=== PATIENT | female | born 2000 | race Caucasian/White ===

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

== ENCOUNTER 2024-09-28 11:40 | Inpatient (IN) | payer BC ==
[2024-09-28] MEDS ORDERED: Lidocaine 1% 50 ML MDV INJECT PRN (12:34)
[2024-09-28] MEDS ORDERED: Calcium Carbonate 500 MG Tab.Chew PO PRN (12:34)
[2024-09-28] MEDS ORDERED: Acetaminophen 325 MG Tab PO PRN (12:34)
[2024-09-28] MEDS ORDERED: Nalbuphine 10 MG/1 ML Vial IVPUSH PRN (12:34)
[2024-09-28] MEDS ORDERED: Ondansetron 4 MG/2 ML SDV IVPUSH PRN (12:34)
[2024-09-28 12:36] LABS: BASOPHILS PERCENT AUTO 0.3 % (0.0-1.0); EOSINOPHILS ABSOLUTE AUTO 0.1 K/mm3 (0.0-0.4); EOSINOPHILS PERCENT AUTO 0.7 % (0.0-6.0); HEMATOCRIT 37.1 % (37.0-47.0); IMMATURE GRAN ABSOLUTE AUTO 0.08 K/mm3 (0.00-0.05); IMMATURE GRAN PERCENT AUTO 0.6 % (0.0-0.4); LYMPHOCYTES ABSOLUTE AUTO 1.6 K/mm3 (1.0-4.8); LYMPHOCYTES PERCENT AUTO 12.6 % (24.0-44.0); MEAN CORPUSCULAR HEMOGLOBIN 23.5 pg (28.0-32.0); MEAN CORPUSCULAR HGB CONC 32.1 g/dl (32.0-36.0); MEAN PLATELET VOLUME 10.2 fl (9.4-12.3); MONOCYTES ABSOLUTE AUTO 0.9 K/mm3 (0.0-0.8); MONOCYTES PERCENT AUTO 7.2 % (0.0-8.0); NEUTROPHILS ABSOLUTE AUTO 10.1 K/mm3 (1.8-7.7); NEUTROPHILS PERCENT AUTO 78.6 % (41.0-71.0); RED BLOOD CELL COUNT 5.06 M/mm3 (4.10-5.30)
[2024-09-28 12:38] LABS: CREATININE,URINE RAND 54.1 mg/dL (30.0-125.0); PROTEIN CREATININE RATIO,URINE 166.4 mg/g (0-149)
[2024-09-28 12:51] LABS: HEMOGLOBIN 11.9 gm/dl (12.0-16.0); MEAN CORPUSCULAR VOLUME 73.3 fl (83.0-99.0); PLATELET COUNT,PLT 288 K/mm3 (150-400)
[2024-09-28 12:55] LABS: CREATININE 0.7 mg/dL (0.55-1.02); EST CRCL DRUG DOSING (CG) 107.01 mL/min; URIC ACID 4.2 mg/dL (2.6-6.0)
[2024-09-28] MEDS: Lactated Ringers 1,000 ML IV SCH (13:49)
[2024-09-28] MEDS: Ampicillin 2 GM in Sodium Chloride 0.9% 100 ML IV ONE (13:50)
[2024-09-28] MEDS: Oxytocin/0.9 % Sodium Chloride 30 UNIT/500 ML BAG IV SCH (13:50)
[2024-09-28] MEDS ORDERED: ePHEDrine 50 MG/ML SDV IVPUSH PRN (16:08)
[2024-09-28] MEDS ORDERED: diphenhydrAMINE 50 MG/ML SDV IVPUSH PRN (16:08)
[2024-09-28] MEDS: Misoprostol 25 MCG (1/4 of 100 MCG) Tab VAG ONE (17:48)
[2024-09-28] MEDS: Ampicillin 1 GM in Sodium Chloride 0.9% 100 ML IV SCH (17:57)
[2024-09-28] MEDS: fentaNYL 100 MCG/2 ML SDV EPIDUR PRN (19:45)
[2024-09-28] MEDS: Bupivacaine/fentaNYL/NS 100 ML Bag EPIDUR PRN (19:45)
[2024-09-29] MEDS: Oxytocin/0.9 % Sodium Chloride 30 UNIT/500 ML BAG IV SCH (04:23)
[2024-09-29] MEDS ORDERED: Docusate Sodium 100 MG Cap PO PRN (04:24)
[2024-09-29] MEDS ORDERED: Benzocaine/Menthol 20%-0.5% Spray 78 GM Cannister TOP PRN (04:24)
[2024-09-29] MEDS ORDERED: Witch Hazel Medicated Pads 40/Jar TOP PRN (04:24)
[2024-09-29] MEDS: Ibuprofen 600 MG Tab PO SCH (04:35)
[2024-09-29] MEDS: Sertraline 50 MG Tab PO SCH (22:37)
[2024-09-30] MEDS: Simethicone 80 MG Tab.Chew PO PRN (04:09)
[2024-09-30] MEDS: Acetaminophen 325 MG Tab PO PRN (04:10)
[2024-09-30] MEDS: Ibuprofen 600 MG Tab PO SCH (05:49)
[2024-10-02 13:47] LABS: TP-PA Non Reactive (Non Reactive)
[2024-10-03 04:46] LABS: FTA-ABS, IGG, SERUM Non Reactive (Non Reactive)
== END 2024-09-30 20:35 | disposition home or self-care (01) | DRG 560 ==
LOC: JD.OBCHECK 11:40 → JD.OB 11:40 → JD.OBCHECK 12:58 → OBSVTOIN 09-29 03:41 → JD.OB 09-29 03:42
PROVIDERS: ADMIT Obstetrics & Gynecology; ATTEND Obstetrics & Gynecology
PROC: 10E0XZZ Delivery of Products of Conception, External Approach (ICD-10-PCS; principal; 2024-09-29)
PROC: 10907ZC Drainage of Amniotic Fluid, Therapeutic from Products of Conception, Via Natural or Artificial Opening (ICD-10-PCS; 2024-09-29)
PROC: 0U7C7DJ Dilation of Cervix with Intraluminal Device, Temporary, Via Natural or Artificial Opening (ICD-10-PCS; 2024-09-29)
PROC: 3E033VJ Introduction of Other Hormone into Peripheral Vein, Percutaneous Approach (ICD-10-PCS; 2024-09-29)
PROC: 3E0R3BZ Introduction of Anesthetic Agent into Spinal Canal, Percutaneous Approach (ICD-10-PCS; 2024-09-29)
PROC: 00HU33Z Insertion of Infusion Device into Spinal Canal, Percutaneous Approach (ICD-10-PCS; 2024-09-29)
DX: O13.4 Gestational [pregnancy-induced] hypertension without significant proteinuria, complicating childbirth (principal); Z37.0 Single live birth; O69.81X0 Labor and delivery complicated by cord around neck, without compression, not applicable or unspecified; Z3A.38 38 weeks gestation of pregnancy
CPT/HCPCS: 01967; 36415; 51701; 51702; 59025; 59409; 82565; 82570; 83615; 84156; 84450; 84460; 84520; 84550; 85025; 86592; 86780; 86850; 86900; 86901; A9270-GY; C1726; J0290; J3010; J3490; J7120; J7999